=== PATIENT | male | born 1965 | race Caucasian/White ===

== ENCOUNTER 2019-11-21 21:57 | Emergency (ER) | payer OTHER ==
[~2019-11-21] VITALS: Ht 170.2 cm; Wt 72.6 kg
[2019-11-21 22:14] VITALS: Ht 170.2 cm; Wt 72.6 kg
[2019-11-21 22:18] VITALS: BP 151/93
== END 2019-11-21 22:18 | disposition other institution (70) ==
LOC: ED 21:57
DX: Z02.89 Encounter for other administrative examinations (principal)